=== PATIENT | female | born 1935 | race Caucasian/White ===

== ENCOUNTER 2017-10-11 15:49 | Emergency (ER) | payer OTHER ==
[~2017-10-11] VITALS: Ht 162.6 cm; Wt 72.6 kg
[2017-10-11] MEDS ORDERED: SYNTHROID50 MCG (16:00)
[2017-10-11] MEDS ORDERED: PEPCID20 MG (16:00)
[2017-10-11] MEDS ORDERED: IRON160 M1 (16:01)
== END 2017-10-11 20:22 | disposition home or self-care (01) ==
LOC: ER 15:49
DX: K94.29 Other complications of gastrostomy (principal)

== ENCOUNTER → 2018-09-21 | Emergency (ER) | payer OTHER ==
[~2018-09-21] VITALS: Ht 160 cm; Wt 83.9 kg
[~2018-09-21] MED LIST: CALTRATE 600+D1 EAC1 GT; DIVALPROEX SOD125 M1 PO; ESTAZOLAM2 MG PO; FERROUS SULFAT325 MG PO; HUMALOG100 UNIT/1; IRON160 M1; LANTUS SOL100 UNIT/1; LEVOTHYROXINE112 MCG PO; PEPCID20 MG; SYNTHROID50 MCG
== END | disposition home or self-care (01) ==
LOC: ER 12:30
DX: K94.23 Gastrostomy malfunction (principal)

== ENCOUNTER 2018-11-03 10:56 | Emergency (ER) | payer OTHER ==
[~2018-11-03] VITALS: Ht 157.5 cm; Wt 70.8 kg
[2018-11-03] MEDS ORDERED: OSEL75CA PO (15:09)
[2018-11-03] MEDS ORDERED: LIQUITUSS200 MG/5 M PO (15:09)
== END 2018-11-03 21:30 | disposition home or self-care (01) ==
LOC: ER 10:56
DX: K94.23 Gastrostomy malfunction (principal); J09.X2 Influenza due to identified novel influenza A virus with other respiratory manifestations